=== PATIENT | female | born 1940 | race Caucasian/White ===

== ENCOUNTER → 2017-05-22 | Outpatient (CLI) | payer OTHER ==
[~2017-05-22] MED LIST: IOPAMIDOL (ISOVUE-M 200) 20 ML VIAL ONE; LIDOCAINE 1% 300 MG/30 ML SDV ONE
== END ==
LOC: FIMAGING 08:36
PROVIDERS: ATTEND Emergency Medicine
PROC: 3E0R3KZ Introduction of Other Diagnostic Substance into Spinal Canal, Percutaneous Approach (ICD-10-PCS; principal; 2017-05-22)
DX: M51.36 Other intervertebral disc degeneration, lumbar region (principal); M48.06 Spinal stenosis, lumbar region; M12.88 Other specific arthropathies, not elsewhere classified, other specified site; Z98.1 Arthrodesis status; Z95.0 Presence of cardiac pacemaker
CPT/HCPCS: Q9966

== ENCOUNTER → 2017-06-05 | Outpatient (CLI) | payer OTHER ==
[~2017-06-05] MED LIST changes: +IOPAMIDOL (ISOVUE-300) 100 ML BTL ONE; -IOPAMIDOL (ISOVUE-M 200) 20 ML VIAL ONE; -LIDOCAINE 1% 300 MG/30 ML SDV ONE
== END ==
LOC: FIMAGING 10:36
PROVIDERS: ATTEND Emergency Medicine
DX: K46.9 Unspecified abdominal hernia without obstruction or gangrene (principal); N28.1 Cyst of kidney, acquired; K59.8 Other specified functional intestinal disorders; K44.9 Diaphragmatic hernia without obstruction or gangrene; Z98.1 Arthrodesis status
CPT/HCPCS: Q9967

== ENCOUNTER 2017-06-08 09:39 | Emergency (ER) | payer OTHER ==
[2017-06-08 10:01] VITALS: RESP 18
--- NOTE | 2017-06-08 10:34 | EDPHY ---
H & P Stated Complaint: Diarrhea post CT with oral contrast Source: Patient, Family (daughter), Old records Exam Limitations: No limitations - Personal History Current Tetanus Diphtheria and Acellular Pertussis (TDAP): Yes Tetanus Vaccine Date: WITHIN 10 YRS - Medical/Surgical History Hx Asthma: No Hx Chronic Respiratory Disease: No Hx Diabetes: No Hx Cardiac Disease: Yes Hx Renal Disease: No Hx Cirrhosis: No Hx Alcoholism: No Hx HIV/AIDS: No Hx Splenectomy or Spleen Trauma: No Other PMH: CAD with stents x2 (2000, 2000), PPM, Rhabdomyelisis, L4-L5 fusion, L breast CA with lumpectomy and radiation, PNA. - Social History Smoking Status: Never smoked Time Seen by Provider: 06/08/17 10:32 HPI/ROS: HPI: This is a 77-year-old female presents with Chief Complaint: Diarrhea Location: GI Quality: Diarrhea Duration: 3 days Signs and Symptoms: No fever, no chills, no back pain, no blood in stool, + nausea, no vomiting, no hematemesis, no abdominal pain Timing: Sudden, intermittent Severity: Moderate Context: Presents with loose stools, 3-5 per day, denies blood in stool, accompanied by left lower quadrant fullness and outpouching. The loose stools began after having her CT scan on her abdomen on 06/05/2017 that showed circumferential narrowing of the cecum with upstream dilatation without significant torsion; questionable internal hernia/partial volvulus. She was having left lower quadrant/hip pain that has been evaluated outpatient extensively including the CT scan as well as imaging of her hip and evaluation by Dr. Herman. Yesterday she had an injection in her left hip. She is on Eliquis for cardiac reasons; recently restarted last night due to being held for 3 days for her hip procedure. She reports nausea from pain medication that she has been taking over the last week; mostly at night; but no vomiting. Denies any recent antibiotic use. Modifying Factors: Took Imodium this morning only had a small amount of stool over the last 3-5 hours. Comment: ROS: see HPI Constitutional: No fever, no chills, no weight loss Eyes: No blurred vision Respiratory: No shortness of breath, no cough Cardiovascular: No chest pain Gastrointestinal: No nausea, no vomiting, no diarrhea Genitourinary: No dysuria Extremities: No myalgias Neurologic: No weakness, no numbness Skin: No rashes Hematologic: No bruising, no bleeding MEDICAL/SURGICAL/SOCIAL HISTORY: CAD with stents x2 (2000, 2000), PPM, Rhabdomyolysis, L4-L5 fusion, L breast CA with lumpectomy and radiation, PNA. Strong family support. CONSTITUTIONAL: Well-appearing, well-groomed, elderly female who appears younger than stated age, awake and alert, no obvious distress HEENT: Atraumatic and normocephalic, PERRL, EOMI. Tympanic membranes clear. Oropharynx clear, no exudate and moist pink mucosa. Airway patent. No lymphadenopathy. No meningismus. Cardiovascular: Normal S1/S2, regular rate, regular rhythm, without murmur rub or gallop. PULMONARY/CHEST: Symmetrical and nontender. Clear to auscultation bilaterally. Good air movement. No accessory muscle usage. ABDOMEN: Soft, nondistended, mild fullness noted in left mid to lower quadrant ; no palpable mass and mild tenderness with deep palpation-no erythema/ fluctuance, no rebound, no guarding, no peritoneal signs, no masses or organomegaly. No CVAT. EXTREMITIES: 2/2 pulses, no deformities, no clubbing, no cyanosis or edema. NEUROLOGICAL: no focal neuro deficits. GCS 15. SKIN: Warm and dry, no erythema. no rash. Good capillary refill. (Harleen Scott) Constitutional: Initial Vital Signs Temperature (C) 36.7 C 06/08/17 09:43 Heart Rate 82 06/08/17 09:43 Respiratory Rate 18 06/08/17 09:43 Blood Pressure 125/97 H 06/08/17 09:43 O2 Sat (%) 97 06/08/17 09:43 O2 Delivery Mode Room Air Allergies/Adverse Reactions: Olzldfl-Ktz-Htw Reductase Inhibitor Allergy (Severe, Verified 06/08/17 09:47) rhabdo Home Medications: Medication Instructions Recorded Colesevelam HCl [Welchol (*)] 1,250 mg PO BID 04/01/15 Ezetimibe [Zetia 10 MG (*)] 10 mg PO DAILY 04/01/15 Mometasone Furoate Nasal [Nasonex] 2 sprays EACHNARE HS PRN 04/01/15 Multivitamins [Multivitamin (*)] 1 tab PO DAILY 04/01/15 Nitroglycerin [Nitrostat 0.4 mg 1 tab SL PRN PRN 04/01/15 (*)] Zolpidem Tartrate [Ambien 5MG (*)] 5 mg PO HS PRN 04/01/15 amLODIPine BESYLATE [Norvasc 2.5 2.5 mg PO DAILY 04/01/15 mg (*)] Aspirin [Aspirin 81mg (*)] 162 mg PO DAILY 04/27/16 Cholecalciferol Vit D3 [Vitamin D3 2,000 units PO Q2D@09 04/27/16 2000 units tab (OTC)] Cyanocobalamin [Vitamin B12 1,000 mcg IM Q30D 04/27/16 1000MCG/ML (*)] Petrolat,Wht/Min Oil/Sod Chl 1 wil EACHEYE BID 04/27/16 [Refresh P.m. Ointment] Eliquis mg PO DAILY 05/17/17 Diphenoxylate HCl/Atrop Sulf 1 tab PO Q8 PRN #12 tab 06/08/17 [Lomotil Tab (*)] Medical Decision Making ED Course/Re-evaluation: Labs, IV fluids, IV medication, abdominal ultrasound ordered Given 2 L normal saline, IV Dilaudid, IV Zofran with adequate relief 1245: Mild leukocytosis noted but no signs of acute kidney injury/electrolyte imbalance/anemia/pancreatitis/elevated LFTs/UTI/sepsis 1300: Called by Radiology and ultrasound shows prominent transverse oriented cecum; no obstruction/incarcerated hernia. Reassessed patient; and after 3 hours in the ER no stool sample of able to be obtained. Given another L of normal saline for a total of 2 L Urinalysis shows 3+ blood, trace LE, 5-10 RBCs; sent for urine culture; asymptomatic. Patient reports that she has a history of microscopic hematuria that has been worked up outpatient. After 4.5 hours in the ER; no episodes of diarrhea and stool sample not able to be obtained. Patient has no signs of sepsis/colitis/obstruction/incarcerated hernia/ coagulopathy/anemia Diarrhea does not appear to be infectious in etiology and at this point seems to be improving gradually. Patient was able to drink Coke and eat crackers in the ER without nausea/ vomiting/diarrhea (Harleen Scott) Differential Diagnosis: Differential including but not limited to hernia incarceration, electrolyte abnormality, depression, anxiety, CVA, spinal cord abnormality, and infectious causes. (Harleen Scott) Other Provider: The patient was evaluated and managed by the Physician Sap Pi Architect. I discussed the patient's presentation and course with the physician virtual office assistant and agree with the evaluation. My co-signature indicates that I have reviewed this chart and I agree with the findings and plan of care as documented. I am the secondary supervising physician. (Ellie Hernández) - Data Points Laboratory Results: Laboratory Results 06/08/17 10:05 06/08/17 10:05 Microbiology Results: MICROBIOLOGY 06/08/17 11:15 Urine,Clean Catch Urine Culture - Final Strep Agalactiae Group B Three [place] Types 06/09/17 09:19 Stool Gastrointestinal Tract Panel (PCR) - Final No Organism Detected Medications Given: Discontinued Medications Hydromorphone HCl (Dilaudid) 1 mg IVP EDNOW ONE Stop: 06/08/17 10:56 Last Admin: 06/08/17 11:58 Dose: Not Given Sodium Chloride (Ns) 1,000 mls @ 0 mls/hr IV EDNOW ONE; Wide Open PRN Reason: Protocol Stop: 06/08/17 10:36 Last Admin: 06/08/17 10:45 Dose: 1,000 mls Sodium Chloride (Ns) 1,000 mls @ 0 mls/hr IV EDNOW ONE; Wide Open PRN Reason: Protocol Stop: 06/08/17 13:17 Last Admin: 06/08/17 13:25 Dose: 1,000 mls Ondansetron HCl (Zofran) 4 mg IVP EDNOW ONE Stop: 06/08/17 10:56 Last Admin: 06/08/17 11:59 Dose: Not Given Ondansetron HCl (Zofran) 4 mg IVP EDNOW ONE Stop: 06/08/17 13:27 Last Admin: 06/08/17 13:29 Dose: 4 mg Departure - Departure Disposition: Home, Routine, Self-Care Clinical Impression: Acute diarrhea, Reaction to contrast media Condition: Good Instructions: Gastroenteritis (ED) Additional Instructions: Patient given stool specimen cup to take home and if she is able to obtain a stool sample, she may bring to the emergency room. Encourage fluid intake to prevent dehydration. Take Lomotil 3 times a day as needed for diarrhea. Follow up with your primary care provider early next week; call Saturday for follow-up appointment. Referrals: Ceferino Rizzo MD [Primary Care Provider] - As per Instructions Reyes Herman MD [Medical Doctor] - As per Instructions Prescriptions: Diphenoxylate HCl/Atrop Sulf [Lomotil Tab (*)] 1 tab PO Q8 PRN #12 tab PRN Reason: Diarrhea/Loose Stools
[2017-06-08] MEDS ORDERED: NS 1,000 ML IV ONE ×2 (10:35→13:16)
[2017-06-08 10:41] LABS: % IMMATURE GRANULYOCYTES 0.5 % (0.0-1.1); ABSOLUTE IMMATURE GRANULOCYTES 0.06 10^3/uL (0.00-0.10); ADD DIFF? NO; ADD MORPH? NO; ADD SCAN? NO; ATYPICAL LYMPHOCYTE FLAG 0 (0-99); FRAGMENT RBC FLAG 0 (0-99); HEMATOCRIT 47.5 % (38.0-47.0); HEMOGLOBIN 16.4 g/dL (12.6-16.3); LEFT SHIFT FLG 0 (0-99); LIPEMIA HEMOLYSIS FLAG 90 (0-99); MEAN CELL HEMOGLOBIN 33.5 pg (27.9-34.1); MEAN CELL HEMOGLOBIN CONCENTR. 34.5 g/dL (32.4-36.7); MEAN CELL VOLUME 96.9 fL (81.5-99.8); MEAN PLATELET VOLUME 9.1 fL (8.7-11.7); PLATELET CLUMPS FLAG 0 (0-99); PLATELET COUNT 296 10^3/uL (150-400)
[2017-06-08 10:48] LABS: ALANINE AMINOTRANSFERASE 65 IU/L (9-52); ALBUMIN 4.7 g/dL (3.5-5.0); ALKALINE PHOSPHATASE 61 IU/L (38-126); ANION GAP 11 mEq/L (8-16); ASPARTATE AMINOTRANSFERASE 33 IU/L (14-46); BILIRUBIN,TOTAL 1.4 mg/dL (0.1-1.4); BILIRUBIN-CONJUGATED 0.3 mg/dL (0.0-0.5); BILIRUBIN-UNCONJUGATED 1.1 mg/dL (0.0-1.1); CALCIUM 10.1 mg/dL (8.5-10.4); CARBON DIOXIDE 26 mEq/l (22-31); CHLORIDE 100 mEq/L (97-110); GLOMERULAR FILTRATION RATE 54; GLUCOSE 121 mg/dL (70-100); POTASSIUM 3.8 mEq/L (3.5-5.2); SODIUM 137 mEq/L (134-144); TOTAL PROTEIN 7.3 g/dL (6.3-8.2)
[2017-06-08] MEDS ORDERED: HYDROmorphONE/DILAUDID 1 MG/ML INJ IVP ONE (10:55)
[2017-06-08] MEDS ORDERED: ONDANSETRON 4 MG/2 ML VIAL IVP ONE ×2 (10:55→13:26)
[2017-06-08 10:57] LABS: INR 1.29 (0.83-1.16); PROTIME(PATIENT) 16.1 SEC (12.0-15.0)
[2017-06-08 10:58] LABS: APTT 33.9 SEC (23.0-38.0)
[2017-06-08 11:45] LABS: COLOR PALE YELLOW; LEUKOCYTE ESTERASE,URINE TRACE (NEGATIVE); NITRITE,URINE NEGATIVE (NEGATIVE)
[2017-06-08 14:02] VITALS: BP 166/87; PULSE 89; TEMP 98.4; O2SAT 94
== END 2017-06-08 14:12 | disposition home or self-care (01) ==
PROC: 3E0337Z Introduction of Electrolytic and Water Balance Substance into Peripheral Vein, Percutaneous Approach (ICD-10-PCS; principal; 2017-06-08)
DX: R19.7 Diarrhea, unspecified (principal); T50.8X5A Adverse effect of diagnostic agents, initial encounter; I25.10 Atherosclerotic heart disease of native coronary artery without angina pectoris; E86.9 Volume depletion, unspecified; Z79.82 Long term (current) use of aspirin; Z79.01 Long term (current) use of anticoagulants; Z95.5 Presence of coronary angioplasty implant and graft; Z85.3 Personal history of malignant neoplasm of breast
CPT/HCPCS: 96374; J2405

== ENCOUNTER → 2017-08-15 | Outpatient (CLI) | payer OTHER | LOC: FIMAGING 10:30 | PROVIDERS: ATTEND Internal Medicine Hematology & Oncology | DX: Z12.31 Encounter for screening mammogram for malignant neoplasm of breast (principal); Z86.000 Personal history of in-situ neoplasm of breast | CPT/HCPCS: G0202 ==

== ENCOUNTER → 2018-08-19 | Outpatient (CLI) | payer OTHER | LOC: FIMAGING 10:21 | PROVIDERS: ATTEND Internal Medicine Hematology & Oncology | DX: Z12.31 Encounter for screening mammogram for malignant neoplasm of breast (principal); Z85.3 Personal history of malignant neoplasm of breast ==

== ENCOUNTER 2018-11-18 08:13 | Day surgery (SDC) | payer OTHER ==
[2018-11-18] MEDS ORDERED: diphenhydrAMINE 25 MG CAP PO ONE ×2 (08:14→08:45)
[2018-11-18] MEDS ORDERED: DIAZEPAM 5 MG TAB PO ONE (08:14)
[2018-11-18] MEDS ORDERED: ceFAZolin 2 GM/DEXTROSE 100 ML IV ONE (08:14)
[2018-11-18] MEDS ORDERED: NS 1,000 ML IV ONE (08:14)
[2018-11-18] MEDS ORDERED: BACITRACIN IRRIGATION/NS 50,000 UNITS/1,000 ML BTL IRR ONE (08:14)
[2018-11-18] MEDS ORDERED: DIAZEPAM 5 MG TAB ONE (08:45)
[2018-11-18] MEDS ORDERED: fentaNYL 100 MCG/2 ML INJ ONE (08:49)
[2018-11-18] MEDS ORDERED: LIDOCAINE 1% 300 MG/30 ML SDV ONE (08:49)
[2018-11-18] MEDS ORDERED: BUPIVACAINE 0.5% 30 ML SDV ONE (08:49)
[2018-11-18] MEDS ORDERED: MIDAZOLAM 2 MG/2 ML VIAL ONE (08:49)
[2018-11-18] MEDS ORDERED: LIDO/EPI 1% **for epidural** 30 ML SDV ONE (08:49)
[2018-11-18 08:50] LABS: PLATELET COUNT 208 10^3/uL (150-400)
[2018-11-18 08:58] LABS: INR 0.97 (0.83-1.16); PROTIME(PATIENT) 12.5 SEC (12.0-15.0)
--- NOTE | 2018-11-18 09:34 | PDHPUP ---
History & Physical Update H&P update statement: This history and physical update is based on an assessment of the patient which was completed after admission or registration (within 24 hours), but prior to the surgery/procedure. H&P update: H&P reviewed & patient examined, no change in patient's condition since H&P completed
--- NOTE | 2018-11-18 09:35 | PDPROPOC ---
Sedation Plan of Care Sedation Plan of Care: vital signs stable, mental status noted, patient educated of risks, benefits, alternatives, patient can tolerate sedation ASA Classification: ASA 1 Planned drugs: fentanyl, midazolam Mallampati Score: Class 1 Mallampati Reference Image: Patient passed 3-3-2 rule?: Yes
--- NOTE | 2018-11-18 10:20 | PDCTREPORT ---
Cardiothoracic Procedure Rpt Cardiothoracic Procedure Report: Procedure: Implantation of a new pulse generator in the setting of generator end of life. Patient is brought to the cardiac catheterization lab in the fasting state. The old pacemaker site was sterilely prepped and draped in the left subclavian fossa. The old scar was anesthetized with 2% xylocaine. An incision was made in the old scar using a 10 blade. Using combination of blunt dissection the Bovie catheter the pacemaker pocket was entered the generator was delivered to the field. The leads were removed from the old generator. They were tested. Bacitracin soaked sponge was briefly placed in the pocket. Pocket was then copiously irrigated. A new generator was delivered to the field. Leads were attached to the new generator confirming serial numbers. Setscrews were tightened per industry standards. The entire system was coiled in the pocket. Standard three-layer closure was used to close the pocket. Pressure dressings applied the patient is taken to recovery for continued care. Right atrial lead is a tendril [employer] [id number] serial number [id number] Right ventricular lead is a [employer] Setrox S [id number]. The new device is a E zakiya 8 DRT serial [id number]. [id number]. Right atrial sensing is 4.7 mV. Impedance is 381 Ohms. Capture is 0.5 volts with a pulse with a 0.4 milliseconds. Right ventricular sensing is 9.1 mV with a impedance of 549 Ohms capture is at 0.6 volts with a pulse with a 0.4 milliseconds. Conclusion:Successful implantation of a new pulse generator. Patient Problems: Problems Problem Status Onset Coronary artery disease Acute
--- NOTE | 2018-11-18 12:53 | CPEKG ---
Test Reason : OPEN Blood Pressure : / mmHG Vent. Rate : 063 BPM Atrial Rate : 064 BPM P-R Int : 183 ms QRS Dur : 130 ms QT Int : 440 ms P-R-T Axes : 078 -42 086 degrees QTc Int : 451 ms Sinus rhythm Left bundle branch block Unchanged in comparison to prior Confirmed by Jt Atkins ([id number]) on 11/18/2018 12:53:16 PM Referred By: Cy Spicer Confirmed By:Jt Atkins
--- NOTE | 2018-11-18 13:01 | CPEKG ---
Test Reason : OPEN Blood Pressure : / mmHG Vent. Rate : 062 BPM Atrial Rate : 061 BPM P-R Int : 211 ms QRS Dur : 119 ms QT Int : 481 ms P-R-T Axes : 074 -54 086 degrees QTc Int : 489 ms Sinus rhythm Incomplete LBBB Inferior infarct, old Anterior infarct, old Confirmed by Jt Atkins ([id number]) on 11/18/2018 1:01:48 PM Referred By: TOMASA MORALES Confirmed By:Jt Atkins
== END 2018-11-18 12:24 | disposition home or self-care (01) ==
LOC: FCATH 08:13
PROVIDERS: ATTEND Internal Medicine Interventional Cardiology
PROC: 0JH607Z Insertion of Cardiac Resynchronization Pacemaker Pulse Generator into Chest Subcutaneous Tissue and Fascia, Open Approach (ICD-10-PCS; principal; 2018-11-18)
PROC: 0JPT0PZ Removal of Cardiac Rhythm Related Device from Trunk Subcutaneous Tissue and Fascia, Open Approach (ICD-10-PCS; principal; 2018-11-18)
DX: Z45.010 Encounter for checking and testing of cardiac pacemaker pulse generator [battery] (principal); I44.1 Atrioventricular block, second degree
CPT/HCPCS: C1785; J0690; J2250; J3010